=== PATIENT | female | born 1935 | race Two or more races ===

== ENCOUNTER 2018-06-19 09:43 | Emergency (ER) | payer MEDICARE, OTHER ==
[~2018-06-19] VITALS: Ht 157.5 cm; Wt 57.6 kg
--- NOTE | 2018-06-19 10:20 | NUR ---
AAOX3, BIB FAMILY FROM HOME VIA WC C/O ABD PAIN X 9 DAYS WITH NAUSEA WORST TODAY AND WHEECHAIR BOUND. RR IS EVEN AND UNLABORED WITH NAD NOTED. SKIN IS WARM AND DRY. AWAITING MD FOR EVAL.
[2018-06-19 11:01] LABS: BASOPHILS % (AUTO) 0.4 % (0.0-2.0); EOSINOPHILS % (AUTO) 0.3 % (0.0-6.0); HEMATOCRIT 40 % (33-45); HEMOGLOBIN 13.3 g/dL (11.5-14.8); LYMPHOCYTES # (AUTO) 1.5 /CMM (0.8-4.8); LYMPHOCYTES % (AUTO) 19.8 % (20.0-44.0); MEAN CORPUSCULAR HGB CONC 34 g/dl (31.0-36.0); MEAN CORPUSCULAR VOLUME 91 fL (82-100); MONOCYTES # (AUTO) 0.4 /CMM (0.1-1.30); MONOCYTES % (AUTO) 5.8 % (2.0-12.0); NEUTROPHILS # (AUTO) 5.4 /CMM (1.8-8.9); NEUTROPHILS % (AUTO) 73.7 % (43.0-81.0); PLATELET COUNT (AUTO) 302 /CMM (150-450); RED BLOOD CELL COUNT(AUTO) 4.37 MIL/uL (4.0-5.2); WHITE BLOOD COUNT (AUTO) 7.4 K/uL (4.3-11.0)
[2018-06-19] MEDS: IV NS 0.9% 500 ML BAG IV ONE (11:02)
[2018-06-19 11:08] LABS: CALCIUM, SERUM 8.7 mg/dL (8.5-10.1); CARBON DIOXIDE 29 mmol/L (21-32); CHLORIDE 100 mmol/L (98-107); CREATININE 0.7 mg/dL (0.6-1.3); GLUCOSE 119 mg/dL (74-106); SODIUM SERUM 138 mmol/L (136-145); UREA NITROGEN, BLOOD 10 mg/dL (7-18)
[2018-06-19 11:15] LABS: ALANINE AMINOTRANSFERASE 11 U/L (12-78); ALBUMIN 2.8 g/dL (3.4-5.0); ALKALINE PHOSPHATASE 77 U/L (46-116); ASPARTATE AMINOTRANSFERASE 15 U/L (15-37); BILIRUBIN,DIRECT 0.1 mg/dL (0.0-0.2); BILIRUBIN,TOTAL 0.4 mg/dL (0.2-1.0); LIPASE 48 U/L (73-393); TOTAL PROTEIN, SERUM 6.6 g/dL (6.4-8.2)
--- NOTE | 2018-06-19 11:40 | NUR ---
Patient is resting comfortably in bed with eyes closed. Easily aroused. VSS
[2018-06-19 11:43] LABS: APPEARANCE,URINE Cloudy (CLEAR); BILIRUBIN,URINE SMALL (NEGATIVE); BLOOD, URINE Large Ery/uL (NEGATIVE); COLOR,URINE Dark Yellow (YELLOW); KETONES,URINE 40 (NEGATIVE); LEUKOCYTE ESTERASE ,URINE Small (NEGATIVE); NITRITE, URINE Negative (NEGATIVE); PROTEIN,URINE 100 mg/dl (NEGATIVE); UGLUCOSE Negative (NEGATIVE); UROBILINOGEN,URINE 0.2 EU/dL (0.2)
[2018-06-19 11:51] LABS: BACTERIA,URINE Moderate /HPF (None Seen); RBC,URINE 50-80 /HPF (0-2); SQUAMOUS EPITHELIAL CELL,UR Few /HPF (None Seen); WBC,URINE 80-100 /HPF (0-3)
[2018-06-19] MEDS ORDERED: SUMA50TA PO (12:48)
[2018-06-19] MEDS ORDERED: SITA1TAB2 PO (12:48)
[2018-06-19] MEDS ORDERED: LUBI24CA5 PO (12:48)
[2018-06-19] MEDS ORDERED: DULO60CA45 PO (12:48)
[2018-06-19] MEDS ORDERED: SODI45SP6 BNOSTRILS (12:48)
[2018-06-19] MEDS ORDERED: THIO200T PO (12:48)
[2018-06-19] MEDS ORDERED: ERGO500014 PO (12:48)
[2018-06-19] MEDS ORDERED: AMIO200T4 PO (12:48)
[2018-06-19] MEDS ORDERED: VITA1TAB56 PO (12:48)
[2018-06-19] MEDS ORDERED: MYRBETRIQ PO (12:48)
[2018-06-19] MEDS ORDERED: DOCU250C14 PO (12:48)
[2018-06-19] MEDS ORDERED: FLUT1DIS5 IH (12:48)
[2018-06-19] MEDS ORDERED: CALC500T52 PO (12:48)
[2018-06-19] MEDS ORDERED: ALBU2.5V38 IH (12:48)
[2018-06-19] MEDS ORDERED: ACET1TAB12 PO (12:48)
[2018-06-19] MEDS ORDERED: OXYB5TAB PO (12:48)
[2018-06-19] MEDS ORDERED: CYCL5TAB PO (12:48)
[2018-06-19] MEDS ORDERED: TRAM50TA2 PO (12:48)
[2018-06-19] MEDS ORDERED: APIX2.5T PO (12:48)
[2018-06-19] MEDS ORDERED: ALBU8.5H8 IH (12:48)
[2018-06-19] MEDS ORDERED: METO25TA3 PO (12:48)
[2018-06-19] MEDS ORDERED: HYDR12.55 PO (12:48)
[2018-06-19] MEDS ORDERED: OMEG1CAP PO (12:48)
[2018-06-19] MEDS ORDERED: ONDA4TAB5 PO (12:48)
[2018-06-19] MEDS ORDERED: LORA10TA7 PO (12:48)
[2018-06-19] MEDS ORDERED: PROP15DR EACHEYE (12:48)
[2018-06-19] MEDS ORDERED: PSYL0.526 PO (12:48)
[2018-06-19] MEDS ORDERED: SIMV10TA6 PO (12:48)
[2018-06-19] MEDS ORDERED: POLY17PO4 PO (12:48)
[2018-06-19] MEDS: CEFTRIAXONE 1 G in IV D5W 50 ML IV STA (12:53)
[2018-06-19] MEDS ORDERED: CEFTRIAXONE 1GM BAG (ER ONLY) 50 ML IV ONE (13:13)
[2018-06-19] MEDS: IV NS 0.9% 1,000 ML BAG IV ONE (13:18)
--- NOTE | 2018-06-19 14:42 | NUR ---
IV removed. Catheter intact and site benign. Pressure and 4x4 applied to site. No bleeding noted.Patient discharged to home in stable condition. Written and verbal after care instructions given. Patient verbalizes understanding of instruction.
[2018-06-19 14:43] VITALS: BP 119/62
== END 2018-06-19 14:44 | disposition home or self-care (01) ==
LOC: ER 09:46
DX: N39.0 Urinary tract infection, site not specified (principal); R11.0 Nausea; E87.6 Hypokalemia; E88.09 Other disorders of plasma-protein metabolism, not elsewhere classified; I10 Essential (primary) hypertension; E11.9 Type 2 diabetes mellitus without complications; M81.0 Age-related osteoporosis without current pathological fracture; J44.9 Chronic obstructive pulmonary disease, unspecified; Z86.711 Personal history of pulmonary embolism; Z86.73 Personal history of transient ischemic attack (TIA), and cerebral infarction without residual deficits; Z90.49 Acquired absence of other specified parts of digestive tract; Z90.89 Acquired absence of other organs; Z88.6 Allergy status to analgesic agent; Z79.899 Other long term (current) drug therapy
CPT/HCPCS: 36415; 71045-TC; 80048-TC; 80076-TC; 81000-TC; 83605-TC; 83690-TC; 84484-TC; 85025-TC; 85730-TC; 87086-TC; 87186-TC; J0696; J7030; J7040; J7060

== ENCOUNTER 2018-08-15 12:48 | Inpatient (IN) | payer MEDICARE, OTHER ==
[~2018-08-15] VITALS: Ht 152.4 cm; Wt 58.1 kg
[~2018-08-15 12:48] MED LIST: ACET1TAB12 PO; ALBU2.5V38 IH; ALBU8.5H8 IH; AMIO200T4 PO; APIX2.5T PO; CALC500T52 PO; CYCL5TAB PO; DOCU250C14 PO; DULO60CA45 PO; ERGO500014 PO; FLUT1DIS5 IH; HYDR12.55 PO; LORA10TA7 PO; LUBI24CA5 PO; METO25TA3 PO; MYRBETRIQ PO; OMEG1CAP PO; ONDA4TAB5 PO; OXYB5TAB PO; POLY17PO4 PO; PROP15DR EACHEYE; PSYL0.526 PO; SIMV10TA6 PO; SITA1TAB2 PO; SODI45SP6 BNOSTRILS; SUMA50TA PO; THIO200T PO; TRAM50TA2 PO; VITA1TAB56 PO
--- NOTE | 2018-08-15 13:03 | NUR ---
PT BIB FAMILY FOR COUGH AND CONGESTION, SENT BY PMD TO R/O PNA, PT AAOX2-3, PT ON MONTIOR, VSS, NAD NOTED, PENDING MD BACON
[2018-08-15] MEDS ORDERED: ALBUTEROL FS 2.5 MG/0.5 ML VIAL.NEB NEB ONE (13:30)
[2018-08-15] MEDS ORDERED: IV NS 0.9% 1,000 ML BAG IV ONE (13:30)
[2018-08-15] MEDS ORDERED: ACETAMINOPHEN 325 MG TABLET PO ONE (13:30)
[2018-08-15] MEDS ORDERED: CEFTRIAXONE 1GM BAG (ER ONLY) 50 ML IV ONE (13:30)
[2018-08-15 13:35] LABS: BASOPHILS # (AUTO) 0.1 /CMM (0.0-0.2); BASOPHILS % (AUTO) 1.4 % (0.0-2.0); HEMATOCRIT 40 % (33-45); HEMOGLOBIN 13.2 g/dL (11.5-14.8); LYMPHOCYTES # (AUTO) 0.7 /CMM (0.8-4.8); LYMPHOCYTES % (AUTO) 20.2 % (20.0-44.0); MEAN CORPUSCULAR HGB CONC 33 g/dl (31.0-36.0); MEAN CORPUSCULAR VOLUME 91 fL (82-100); MONOCYTES # (AUTO) 0.4 /CMM (0.1-1.30); MONOCYTES % (AUTO) 11.2 % (2.0-12.0); NEUTROPHILS # (AUTO) 2.5 /CMM (1.8-8.9); NEUTROPHILS % (AUTO) 67.2 % (43.0-81.0); PLATELET COUNT (AUTO) 173 /CMM (150-450); RED BLOOD CELL COUNT(AUTO) 4.37 MIL/uL (4.0-5.2); WHITE BLOOD COUNT (AUTO) 3.7 K/uL (4.3-11.0)
[2018-08-15 13:44] LABS: CALCIUM, SERUM 8.4 mg/dL (8.5-10.1); CARBON DIOXIDE 31 mmol/L (21-32); CHLORIDE 101 mmol/L (98-107); CREATININE 0.9 mg/dL (0.6-1.3); GLUCOSE 80 mg/dL (74-106); POTASSIUM 3.4 mmol/L (3.5-5.1); SODIUM SERUM 132 mmol/L (136-145); UREA NITROGEN, BLOOD 12 mg/dL (7-18)
[2018-08-15] MEDS ORDERED: ALBUTEROL FS 2.5 MG/3 ML VIAL.NEB ONE ×2 (13:47→15:28)
[2018-08-15] MEDS ORDERED: ACETAMINOPHEN 325 MG TABLET ONE (13:48)
[2018-08-15 13:50] LABS: ALANINE AMINOTRANSFERASE 17 U/L (12-78); ALBUMIN 2.9 g/dL (3.4-5.0); ALKALINE PHOSPHATASE 67 U/L (46-116); ASPARTATE AMINOTRANSFERASE 33 U/L (15-37); BILIRUBIN,DIRECT 0.2 mg/dL (0.0-0.2); BILIRUBIN,TOTAL 0.4 mg/dL (0.2-1.0); TOTAL PROTEIN, SERUM 6.5 g/dL (6.4-8.2)
[2018-08-15 15:01] LABS: APPEARANCE,URINE Clear (CLEAR); BILIRUBIN,URINE Negative (NEGATIVE); BLOOD, URINE Negative Ery/uL (NEGATIVE); COLOR,URINE Yellow (YELLOW); KETONES,URINE Negative (NEGATIVE); LEUKOCYTE ESTERASE ,URINE Negative (NEGATIVE); NITRITE, URINE Negative (NEGATIVE); PROTEIN,URINE Negative (NEGATIVE); UGLUCOSE Negative (NEGATIVE); UROBILINOGEN,URINE 0.2 EU/dL (0.2)
[2018-08-15] MEDS ORDERED: ALBUTEROL FS 2.5 MG/3 ML VIAL.NEB CONTNEB ONE (15:30)
--- NOTE | 2018-08-15 15:52 | NUR ---
MED-SURGE BED 325-1
--- NOTE | 2018-08-15 16:05 | NUR ---
REPORT GIVEN TO DILIP WILKINS FOR ANDERS
--- NOTE | 2018-08-15 16:46 | NUR ---
PT READY TO BE TRANSFERRED, ADMITTING DEPT MOVE PACKET NOT READY
--- NOTE | 2018-08-15 17:25 | NUR ---
PT TRANSPORTED TO [facility] VIA ACLS PROTOCOL
--- NOTE | 2018-08-15 18:44 | NUR ---
RN CLOSING NOTES PT RESTING IN BED COMFORTABLY. AWAITING ADMISSION ORDERS CHER GARCIA AWARE. PT HAD A RIGHT AC #18, ACCIDENTLY REMOVED. PT PRIMARILY [place] SPEAKER, FAMILY AT BEDSIDE FOR TRANSLATION. SAFETY PRECAUTIONS IN PLACE, BED IN LOWEST LOCKED POSITION, WILL ENDORSE TO CRIMINAL LAWYER.
--- NOTE | 2018-08-15 19:28 | NUR ---
MS RN AWAKE IN BED WATCHING TV, STABLE. FAMILY AT BEDSIDE, A/OX4. RESPIRATIONS EVEN AND UNLABORED, NO SOB NOTED,SAFETY MEASURES IN PLACE. WILL CONTINUE TO MONITOR.
[2018-08-15 20:00] VITALS: BP_SYST 113; BP_DIAS 113; BP_DIAS 49
[2018-08-15] MEDS ORDERED: Z GUARD REMEDY 2 OZ OINT TP PRN (20:00)
[2018-08-15] MEDS ORDERED: POLYETHYLENE GLYCOL 3350 17 GM POWD.PACK PO PRN (20:00)
[2018-08-15] MEDS ORDERED: HYDROCODONE/APAP 5/325MG 1 EACH TABLET PO PRN (20:00)
[2018-08-15] MEDS ORDERED: MAG HYDROX/AL HYDROX/SIMETH 30 ML UDC PO PRN (20:00)
[2018-08-15] MEDS ORDERED: ACETAMINOPHEN 325 MG TABLET PO PRN (20:00)
[2018-08-15] MEDS ORDERED: MAGNESIUM HYDROXIDE 30 ML UDC PO PRN (20:00)
[2018-08-15] MEDS ORDERED: LORATADINE 10 MG TABLET PO PRN (20:00)
[2018-08-15] MEDS: IV NS 0.9% 1,000 ML IV PRN (20:13)
[2018-08-15] MEDS: ELIQUIS 2.5 MG PO SCH (21:13)
[2018-08-15] MEDS: POLYVINYL ALCOHOL 15 ML BOTTLE EACHEYE SCH (21:14)
--- NOTE | 2018-08-16 06:05 | NUR ---
MS RN CLOSING NOTE ASLEEP AND EASILY AWAKEN. DAUGHTER AT BEDSIDE. TOLERATING ROOM AIR 98%. PT A/O X 3 WITH PERIOD OF FORGETFULNESS. IN NO APPARENT DISTRESS OR DISCOMFORT AT THIS TIME. RESPIRATIONS EVEN AND UNLABORED. DENIES PAIN AND SOB AT THIS TIME. PATIENT KEPT CLEAN AND COMFORTABLE. ALL NEEDS ATTENDED. REPOSITIONED EVERY 2 HOURS, SAFETY MEASURES IN PLACE, BED IN LOW LOCKED POSITION, CALL LIGHT WITHIN EASY REACH. ENDORSE TO NEXT SHIFT CONTINUITY OF CARE.
[2018-08-16 06:52] LABS: EOSINOPHILS % (AUTO) 0.2 % (0.0-6.0); HEMATOCRIT 34 % (33-45); HEMOGLOBIN 11.7 g/dL (11.5-14.8); LYMPHOCYTES # (AUTO) 1.2 /CMM (0.8-4.8); LYMPHOCYTES % (AUTO) 35.6 % (20.0-44.0); MEAN CORPUSCULAR HGB CONC 34 g/dl (31.0-36.0); MEAN CORPUSCULAR VOLUME 90 fL (82-100); MONOCYTES # (AUTO) 0.3 /CMM (0.1-1.30); MONOCYTES % (AUTO) 9.7 % (2.0-12.0); NEUTROPHILS # (AUTO) 1.8 /CMM (1.8-8.9); NEUTROPHILS % (AUTO) 53.5 % (43.0-81.0); PLATELET COUNT (AUTO) 140 /CMM (150-450); RED BLOOD CELL COUNT(AUTO) 3.83 MIL/uL (4.0-5.2); WHITE BLOOD COUNT (AUTO) 3.3 K/uL (4.3-11.0)
--- NOTE | 2018-08-16 07:12 | NUR ---
MS RN NOTES PATIENT IN BED ALERT ORIENTED X 3. NO ACUTE DISTRESS NOTED. BREATHING UNLABORED. NO SOB NOTED. DENIED ANY PAIN. IV ACCESS PATENT AND INTACT, NO REDNESS OR SWELLING NOTED. SAFETY MEASURES IN PLACE. CALL LIGHT WITHIN REACH. WILL CONTINUE TO MONITOR ACCORDINGLY.
[2018-08-16 07:20] LABS: CALCIUM, SERUM 7.3 mg/dL (8.5-10.1); CARBON DIOXIDE 26 mmol/L (21-32); CHLORIDE 107 mmol/L (98-107); CREATININE 0.6 mg/dL (0.6-1.3); GLUCOSE 76 mg/dL (74-106); MAGNESIUM 1.3 mg/dL (1.8-2.4); PHOSPHORUS 2.5 mg/dL (2.5-4.9); SODIUM SERUM 143 mmol/L (136-145); UREA NITROGEN, BLOOD 7 mg/dL (7-18)
[2018-08-16 07:27] LABS: CHOLESTEROL 102 mg/dL (<200); HDL CHOLESTEROL 38 mg/dL (40-60); LDL 58 mg/dL (0-99); THYROID STIMULATING HORMONE 1.458 uIU/mL (0.358-3.74); TRIGLYCERIDES 58 mg/dL (30-150)
[2018-08-16] MEDS: glipiZIDE 5 MG TABLET PO SCH ×3 (07:30→16:30)
[2018-08-16 07:33] LABS: POTASSIUM 2.5 mmol/L (3.5-5.1)
[2018-08-16 08:02] VITALS: BP 119/63
[2018-08-16] MEDS: PANTOPRAZOLE 40 MG TABLET.DR PO SCH (08:24)
[2018-08-16] MEDS ORDERED: SIMVASTATIN 10 MG TABLET PO SCH (09:00)
[2018-08-16] MEDS ORDERED: METOPROLOL SUCCINATE 25 MG TAB.SR.24H PO SCH (09:00)
[2018-08-16] MEDS ORDERED: Medication Not On Formulary EA ([Myrbetriq] 50 MG) PO SCH (09:00)
[2018-08-16] MEDS ORDERED: ERGOCALCIFEROL (VITAMIN D 2) 50,000 UNIT CAPSULE PO SCH (09:00)
[2018-08-16] MEDS ORDERED: Medication Not On Formulary EA (Omega-3 Fatty Acids/Fish Oil (Fish Oil 1,000 Mg Capsule) PO SCH (09:00)
--- NOTE | 2018-08-16 09:07 | NUR ---
MS RN NOTES SEEN AND EVALUATED BY JOSHUA GARCIA, AWARE LABORATORY TEST RESULTS FROM TODAY INCLUDING LOW POTASSIUM, WITH NEW ORDERS MADE. NOTED AND CARRIED OUT.
[2018-08-16] MEDS: Magnesium 1GM/D5W 100ML PREMIX 100 ML IV SCH ×2 (09:24→21:43)
[2018-08-16 09:27] LABS: ALBUMIN 2.4 g/dL (3.4-5.0); TOTAL PROTEIN, SERUM 5.6 g/dL (6.4-8.2)
[2018-08-16] MEDS: IV NS 0.9% 1,000 ML IV PRN (09:29)
[2018-08-16] MEDS ORDERED: POTASSIUM CHLORIDE 20 MEQ TAB.PRT.SR PO ONE (09:30)
[2018-08-16] MEDS: POLYVINYL ALCOHOL 15 ML BOTTLE EACHEYE SCH ×3 (09:38→17:18)
[2018-08-16] MEDS: DOCUSATE SODIUM 250 MG CAPSULE PO SCH ×2 (09:38→17:15)
[2018-08-16] MEDS: PSYLLIUM SEED 1 PKT PACKET PO SCH ×3 (09:38→17:00)
[2018-08-16] MEDS: CALCIUM CARBONATE (1250) 500 MG TABLET PO SCH ×2 (09:38→17:15)
[2018-08-16] MEDS: VITAMIN B COMP W-C 1 TAB TABLET PO SCH (09:39)
[2018-08-16] MEDS: IPRATROPIUM NEB FS 0.5 MG/2.5 ML AMPUL.NEB NEB PRN (09:54)
[2018-08-16] MEDS: ALBUTEROL FS 2.5 MG/3 ML VIAL.NEB NEB PRN (09:54)
[2018-08-16] MEDS: DULOXETINE HCL 30 MG CAPSULE.DR PO SCH (09:57)
[2018-08-16] MEDS: ELIQUIS 2.5 MG PO SCH ×2 (09:58→17:17)
[2018-08-16] MEDS: AMITIZA 24 MCG PO SCH ×2 (09:58→17:17)
[2018-08-16] MEDS: AMIODARONE HCL 200 MG TABLET PO SCH (09:59)
[2018-08-16] MEDS: OXYBUTYNIN CHLORIDE ER 5 MG TAB PO SCH (10:00)
[2018-08-16] MEDS: POTASSIUM CL. PREMIX PERIPHER. 50 ML IV SCH ×4 (10:26→20:27)
[2018-08-16] MEDS ORDERED: DEXTROSE 50%-WATER 50 ML DISP.SYRIN IV PRN (11:30)
[2018-08-16] MEDS: CEFTRIAXONE 1 G in IV D5W 50 ML IV SCH (13:52)
[2018-08-16 16:00] VITALS: BP 118/70
[2018-08-16] MEDS: ONDANSETRON HCL/PF 4 MG/2 ML VIAL IVP PRN (17:15)
[2018-08-16] MEDS: SUMATRIPTAN SUCCINATE 25 MG TABLET PO PRN (17:16)
[2018-08-16] MEDS: ACETAMINOPHEN W/ CODEINE#3 1 EA TABLET PO PRN (17:19)
--- NOTE | 2018-08-16 18:59 | NUR ---
MS RN NOTES PATIENT SEEN BY RUBBER OFF RADHA WITH ORDERS TO CANCEL BMP AFTER ADMINISTRATION OF POTASSIUM IV, CAN BE DONE TOGETHER WITH TOMORROW'S LABORATORY TEST.NOTED AND CARRIED OUT.
--- NOTE | 2018-08-16 19:00 | NUR ---
MS RN NOTES PATIENT IN BED ALERT ORIENTED X 3. NO ACUTE DISTRESS NOTED. BREATHING UNLABORED. NO SOB NOTED. DENIED ANY PAIN. IV ACCESS PATENT AND INTACT, NO REDNESS OR SWELLING NOTED. DUE MEDICATIONS GIVEN, NO ASE NOTED. NEEDS ATTENDED AND ANTICIPATED. KEPT CLEAN DRY AND COMFORTABLE. SAFETY MEASURES IN PLACE. CALL LIGHT WITHIN REACH. DELAYED ADMINISTRATION ON MAGNESIUM IV AND POTASSIUM IV PER PATIENT REQUEST, SEWER SEPARATION DESIGNER CHER GARCIA AWARE, ENDORSED TO NIGHT NURSE FOR CONTINUITY OF CARE.
[2018-08-16 20:00] VITALS: BP 144/68
--- NOTE | 2018-08-16 20:00 | NUR ---
RN NOTES PATIENT IS ALERT AND ORIENTED X3, [place] SPEAKING ONLY, CALM, NO SOB, ON ROOM AIR, LUNG SOUNDS ARE CLEAR, GENERALIZED WEAKNESS, ON POTASSIUM IV AND MAGNESIUM IV, FAMILY AT THE BEDSIDE, NEEDS ATTENDED, CALL LIGHT WITHIN REACH
[2018-08-16] MEDS: SIMVASTATIN 10 MG TABLET PO SCH (21:05)
[2018-08-16] MEDS: METOPROLOL SUCCINATE 25 MG TAB.SR.24H PO SCH (21:05)
[2018-08-16 22:00] VITALS: BP 144/68
[2018-08-16 22:11] VITALS: BP 144/68
[2018-08-17] MEDS: IPRATROPIUM NEB FS 0.5 MG/2.5 ML AMPUL.NEB NEB PRN (00:22)
[2018-08-17] MEDS: ALBUTEROL FS 2.5 MG/3 ML VIAL.NEB NEB PRN (00:22)
[2018-08-17] MEDS: ACETAMINOPHEN W/ CODEINE#3 1 EA TABLET PO PRN ×3 (01:00→20:14)
[2018-08-17] MEDS: ONDANSETRON HCL/PF 4 MG/2 ML VIAL IVP PRN ×3 (01:00→20:14)
[2018-08-17] MEDS: BLOOD SUGAR DIAGNOSTIC 1 EACH STRIP IN SCH (06:37)
[2018-08-17] MEDS: IV NS 0.9% 1,000 ML IV PRN ×2 (06:39→21:56)
--- NOTE | 2018-08-17 06:57 | NUR ---
RN NOTES PM SHIFT PATIENT IS ALERT AND ORIENTED, GENERALIZED WEAKNESS, NO RESPIRATORY DISTRESS, COMPLAINING OF MIGRAINE, GIVEN TYLENOL WITH CODEINE X2, MONITOR POTASSIUM AND MAGNESIUM LEVEL, ASSESS RESPIRATORY LEVEL STATUS AND BREATHING TX PRN.
--- NOTE | 2018-08-17 07:10 | NUR ---
MS RN NOTES PATIENT IN BED EYES CLOSED, EASY TO AROUSE, RESPOND TO VERBAL AND TACTILE STIMULI. HEAD OF BED ELEVATED. NO ACUTE DISTRESS NOTED. BREATHING UNLABORED. NO SOB NOTED. DENIED ANY PAIN. IV ACCESS PATENT AND INTACT, NO REDNESS OR SWELLING NOTED. SAFETY MEASURES IN PLACE. CALL LIGHT WITHIN REACH. WILL CONTINUE TO MONITOR ACCORDINGLY.
[2018-08-17] MEDS: glipiZIDE 5 MG TABLET PO SCH ×2 (07:30→16:30)
[2018-08-17 07:42] LABS: BASOPHILS % (AUTO) 0.6 % (0.0-2.0); EOSINOPHILS % (AUTO) 0.2 % (0.0-6.0); HEMATOCRIT 36 % (33-45); LYMPHOCYTES # (AUTO) 1.4 /CMM (0.8-4.8); LYMPHOCYTES % (AUTO) 37.6 % (20.0-44.0); MEAN CORPUSCULAR HGB CONC 34 g/dl (31.0-36.0); MEAN CORPUSCULAR VOLUME 90 fL (82-100); MONOCYTES # (AUTO) 0.3 /CMM (0.1-1.30); MONOCYTES % (AUTO) 7.1 % (2.0-12.0); NEUTROPHILS % (AUTO) 54.5 % (43.0-81.0); PLATELET COUNT (AUTO) 114 /CMM (150-450); RED BLOOD CELL COUNT(AUTO) 3.95 MIL/uL (4.0-5.2); WHITE BLOOD COUNT (AUTO) 3.8 K/uL (4.3-11.0)
[2018-08-17 07:53] LABS: CALCIUM, SERUM 7.7 mg/dL (8.5-10.1); CARBON DIOXIDE 25 mmol/L (21-32); CHLORIDE 108 mmol/L (98-107); CREATININE 0.5 mg/dL (0.6-1.3); GLUCOSE 74 mg/dL (74-106); MAGNESIUM 1.8 mg/dL (1.8-2.4); PHOSPHORUS 1.9 mg/dL (2.5-4.9); POTASSIUM 3.6 mmol/L (3.5-5.1); SODIUM SERUM 140 mmol/L (136-145); UREA NITROGEN, BLOOD 6 mg/dL (7-18)
[2018-08-17 08:00] VITALS: BP 100/49
[2018-08-17] MEDS: PANTOPRAZOLE 40 MG TABLET.DR PO SCH (08:29)
[2018-08-17] MEDS: AMIODARONE HCL 200 MG TABLET PO SCH (09:00)
[2018-08-17] MEDS: PSYLLIUM SEED 1 PKT PACKET PO SCH ×3 (09:00→17:00)
[2018-08-17] MEDS: DOCUSATE SODIUM 250 MG CAPSULE PO SCH ×2 (09:32→17:00)
[2018-08-17] MEDS: POLYVINYL ALCOHOL 15 ML BOTTLE EACHEYE SCH ×3 (09:32→17:40)
[2018-08-17] MEDS: CALCIUM CARBONATE (1250) 500 MG TABLET PO SCH ×2 (09:32→17:40)
[2018-08-17] MEDS: AMITIZA 24 MCG PO SCH ×2 (09:33→17:39)
[2018-08-17] MEDS: OXYBUTYNIN CHLORIDE ER 5 MG TAB PO SCH (09:33)
[2018-08-17] MEDS: VITAMIN B COMP W-C 1 TAB TABLET PO SCH (09:33)
[2018-08-17] MEDS: DULOXETINE HCL 30 MG CAPSULE.DR PO SCH (09:33)
[2018-08-17] MEDS: ELIQUIS 2.5 MG PO SCH ×2 (09:34→17:39)
[2018-08-17] MEDS ORDERED: NEUTRA PHOS 1 POWD.PACKET PO ONE (10:00)
[2018-08-17] MEDS: CEFTRIAXONE 1 G in IV D5W 50 ML IV SCH (13:06)
--- NOTE | 2018-08-17 15:43 | NUR ---
MS RN NOTES RECEIVED NEW ORDERS FROM MAHAMED GARCIA FOR SPUTUM CULTURE, NOTED AND CARRIED OUT.
[2018-08-17 16:00] VITALS: BP 103/67
--- NOTE | 2018-08-17 19:00 | NUR ---
MS RN NOTES PATIENT IN BEDALERT ORIENTED X 3. HEAD OF BED ELEVATED. NO ACUTE DISTRESS NOTED. BREATHING UNLABORED. NO SOB NOTED. DENIED ANY PAIN. IV ACCESS PATENT AND INTACT, NO REDNESS OR SWELLING NOTED.DUE MEDICATIONS GIVEN, NO ASE NOTED, NEEDS ATTENDED AND ANTICIPATED. KEPT CLEAN DRY AND COMFORTABLE. SAFETY MEASURES IN PLACE. CALL LIGHT WITHIN REACH. ENDORSED TO NIGHT NURSE FOR CONTINUITY OF CARE
[2018-08-17 20:00] VITALS: BP 103/52
--- NOTE | 2018-08-17 20:00 | NUR ---
RN NOTES PATIENT IS ALERT AND ORIENTED X3, NO SOB, COMPLAINING OF MIGRAINE, WEAK, LETHARGIC, NO APPETITE, FAMILY VERY SUPPORTIVE, AWAITING PSYCH CONSULT
[2018-08-17] MEDS: SUMATRIPTAN SUCCINATE 25 MG TABLET PO PRN (20:14)
[2018-08-17] MEDS: SIMVASTATIN 10 MG TABLET PO SCH (21:53)
[2018-08-17] MEDS: METOPROLOL SUCCINATE 25 MG TAB.SR.24H PO SCH (21:53)
[2018-08-17 22:00] VITALS: BP 103/52
[2018-08-17] MEDS ORDERED: MIRTAZAPINE 15 MG TABLET PO SCH ×2 (22:00)
--- NOTE | 2018-08-17 22:30 | NUR ---
RN NOTES SEEN BY DR. CALLAWAY, NEW ORDER OF MIRTAZAPINE, FIRST DOSE GIVEN, EDUCATED PATIENT AND FAMILY ABOUT MEDICATION
--- NOTE | 2018-08-18 06:39 | NUR ---
RN NOTES PM SHIFT PATIENT IS ALERT AND ORIENTED X3, NO SOB, DEPRESSED, LETHARGIC, NO APPETITE, SEEN BY DR. CALLAWAY FOR PSYCH CONSULT, NEW ORDER OF MIRTAZAPINE, GIVEN FIRST DOSE, MIGRAINE HEADACHE, GIVEN IMITREX, TYLENOL WITH CODEINE AND ZOFRAN WITH GOOD RELIEF, PER POC, CONTINUE HOSPITALIZATION, IVF, MONITOR LABS, ASSESS RESPIRATORY STATUS Q4 HRS, BREATHING TX, AND PAIN MANAGEMENT.
[2018-08-18 06:41] LABS: BASOPHILS % (AUTO) 0.5 % (0.0-2.0); CALCIUM, SERUM 7.7 mg/dL (8.5-10.1); CARBON DIOXIDE 27 mmol/L (21-32); CHLORIDE 107 mmol/L (98-107); CREATININE 0.6 mg/dL (0.6-1.3); EOSINOPHILS % (AUTO) 0.5 % (0.0-6.0); GLUCOSE 76 mg/dL (74-106); HEMATOCRIT 36 % (33-45); HEMOGLOBIN 12.2 g/dL (11.5-14.8); LYMPHOCYTES # (AUTO) 1.8 /CMM (0.8-4.8); LYMPHOCYTES % (AUTO) 45.3 % (20.0-44.0); MAGNESIUM 1.5 mg/dL (1.8-2.4); MEAN CORPUSCULAR HGB CONC 34 g/dl (31.0-36.0); MEAN CORPUSCULAR VOLUME 91 fL (82-100); MONOCYTES # (AUTO) 0.3 /CMM (0.1-1.30); MONOCYTES % (AUTO) 7.6 % (2.0-12.0); NEUTROPHILS # (AUTO) 1.8 /CMM (1.8-8.9); NEUTROPHILS % (AUTO) 46.1 % (43.0-81.0); PHOSPHORUS 2.4 mg/dL (2.5-4.9); PLATELET COUNT (AUTO) 106 /CMM (150-450); POTASSIUM 3.5 mmol/L (3.5-5.1); RED BLOOD CELL COUNT(AUTO) 4.01 MIL/uL (4.0-5.2); SODIUM SERUM 140 mmol/L (136-145); UREA NITROGEN, BLOOD 6 mg/dL (7-18); WHITE BLOOD COUNT (AUTO) 3.9 K/uL (4.3-11.0)
--- NOTE | 2018-08-18 07:15 | NUR ---
RN OPENING NOTES RECEIVED PATIENT IN BED RESTING. ALERT AND ORIENTED X 3, [place] SPEAKING, DAUGHTER AT BEDSIDE. LETHARGIC. NOT IN ANY FORM OF DISTRESS, NO SOB. DENIED PAIN OR DISCOMFORT AT THIS TIME. IV ACCESS INTACT AND PATENT. KEPT PATIENT SAFE AND COMFORTABLE. BED IN LOW/LOCKED POSITION, SIDERAILS UPX2, CALL LIGHT IN REACH. WILL CONTINUE TO MONIOTR ACCORDINGLY.
[2018-08-18] MEDS: glipiZIDE 5 MG TABLET PO SCH (07:30)
[2018-08-18] MEDS: BLOOD SUGAR DIAGNOSTIC 1 EACH STRIP IN SCH (07:30)
[2018-08-18] MEDS: ELIQUIS 2.5 MG PO SCH (08:22)
[2018-08-18] MEDS: OXYBUTYNIN CHLORIDE ER 5 MG TAB PO SCH (08:22)
[2018-08-18] MEDS: DOCUSATE SODIUM 250 MG CAPSULE PO SCH (08:24)
[2018-08-18] MEDS: AMITIZA 24 MCG PO SCH (08:24)
[2018-08-18] MEDS: VITAMIN B COMP W-C 1 TAB TABLET PO SCH (08:24)
[2018-08-18] MEDS: CALCIUM CARBONATE (1250) 500 MG TABLET PO SCH (08:24)
[2018-08-18] MEDS: PANTOPRAZOLE 40 MG TABLET.DR PO SCH (08:25)
[2018-08-18] MEDS: AMIODARONE HCL 200 MG TABLET PO SCH (08:26)
[2018-08-18] MEDS: POLYVINYL ALCOHOL 15 ML BOTTLE EACHEYE SCH ×2 (08:27→12:24)
[2018-08-18 08:30] VITALS: BP 136/67
[2018-08-18] MEDS: PSYLLIUM SEED 1 PKT PACKET PO SCH ×2 (08:36→13:00)
[2018-08-18] MEDS ORDERED: NEUTRA PHOS 1 POWD.PACKET PO ONE (10:30)
[2018-08-18] MEDS: Magnesium 1GM/D5W 100ML PREMIX 100 ML IV SCH ×2 (10:58→12:01)
[2018-08-18] MEDS: ONDANSETRON HCL/PF 4 MG/2 ML VIAL IVP PRN (12:21)
[2018-08-18] MEDS: ACETAMINOPHEN W/ CODEINE#3 1 EA TABLET PO PRN (12:21)
[2018-08-18] MEDS: IPRATROPIUM NEB FS 0.5 MG/2.5 ML AMPUL.NEB NEB PRN ×2 (12:29→16:14)
[2018-08-18] MEDS: ALBUTEROL FS 2.5 MG/3 ML VIAL.NEB NEB PRN ×2 (12:29→16:14)
[2018-08-18] MEDS: CEFTRIAXONE 1 G in IV D5W 50 ML IV SCH (13:59)
[2018-08-18] MEDS ORDERED: ONDANSETRON HCL/PF 4 MG/2 ML VIAL ONE (14:21)
[2018-08-18] MEDS ORDERED: MORPHINE SULFATE INJ 4 MG/ML DISP.SYRIN ONE (14:21)
[2018-08-18 16:50] VITALS: BP 105/53
--- NOTE | 2018-08-18 18:25 | NUR ---
DISCHARGED PATIENT IN STABLE CONDITION PICKED UP BY DAUGHTER. DISCHARGE INSTRUCTIONS GIVEN, VERBALIZED UNDERSTANDING. DC PAPERWORK AND PRESCRIPTION GIVEN. ALL BELONGINGS AND HOME MEDICATIONS RETURNED, CHECKLIST SIGNED. IV ACCESS REMOVED, APPLIED PRESSURE, NO BLEEDING, NO COMPLICATIONS. REMOVED NAME BAND.
== END 2018-08-18 18:30 | disposition home or self-care (01) | DRG 202 ==
LOC: ER 12:57 → MED 16:55
PROVIDERS: ADMIT Hospitalist; ATTEND Hospitalist
PROC: 05H633Z Insertion of Infusion Device into Left Subclavian Vein, Percutaneous Approach (ICD-10-PCS; principal; 2018-08-15)
PROC: B547ZZA Ultrasonography of Left Subclavian Vein, Guidance (ICD-10-PCS; 2018-08-15)
DX: J20.8 Acute bronchitis due to other specified organisms (principal); E44.0 Moderate protein-calorie malnutrition; E87.1 Hypo-osmolality and hyponatremia; J06.9 Acute upper respiratory infection, unspecified; E83.39 Other disorders of phosphorus metabolism; Z86.73 Personal history of transient ischemic attack (TIA), and cerebral infarction without residual deficits; I10 Essential (primary) hypertension; E87.6 Hypokalemia; E86.0 Dehydration; E83.42 Hypomagnesemia; F32.9 Major depressive disorder, single episode, unspecified; Z86.711 Personal history of pulmonary embolism; E78.5 Hyperlipidemia, unspecified; J45.909 Unspecified asthma, uncomplicated; G43.909 Migraine, unspecified, not intractable, without status migrainosus; E11.42 Type 2 diabetes mellitus with diabetic polyneuropathy; M81.0 Age-related osteoporosis without current pathological fracture; I48.2 Chronic atrial fibrillation; K58.9 Irritable bowel syndrome, unspecified; R32 Unspecified urinary incontinence; Z79.01 Long term (current) use of anticoagulants; Z79.899 Other long term (current) drug therapy; Z83.3 Family history of diabetes mellitus; Z87.440 Personal history of urinary (tract) infections; Z79.51 Long term (current) use of inhaled steroids
CPT/HCPCS: 36415; 71045-TC; 80048-TC; 80061-TC; 80076-TC; 81000-TC; 82040-TC; 82962-TC; 83605-TC; 83735-TC; 84100-TC; 84155-TC; 84443-TC; 84484-TC; 85025-TC; 85730-TC; 87040-TC; 87081-TC; 87086-TC; 87400; 94799-TC; G0378; J0696; J2270; J2405; J3475; J3480; J7030; J7060

== ENCOUNTER 2018-09-04 05:25 | Emergency (ER) | payer MEDICARE ==
[~2018-09-04] VITALS: Ht 152.4 cm; Wt 56.4 kg
[~2018-09-04 05:25] MED LIST changes: -DULO60CA45 PO
--- NOTE | 2018-09-04 05:57 | NUR ---
BIBFAMILY C/O LOWER ABDOMINAL PAIN X1 DAY. +N,-V/D. -FEVER. -DYSURIA. LBM 1 DAY AGO. PT IS AAOX4, GREEK SPEAKING ONLY. PT'S FAMILY BEDSIDE. MILD S/S OF ACUTE DISTRESS NOTED D/T PT BEING IN PAIN. RR EVEN AND UNLABORED. PT PLACED ON FINISHING MACHINE OPERATOR AUTOMATIC AND POX. PT SAFETY AND COMFORT MEASURES IN PLACE. COMPLETED PT EVAL.
[2018-09-04] MEDS ORDERED: ONDANSETRON HCL/PF 4 MG/2 ML VIAL ONE (05:58)
[2018-09-04] MEDS ORDERED: HYDROMORPHONE 1 MG/1 ML DISP.SYRIN ONE (05:59)
[2018-09-04] MEDS ORDERED: HYDROMORPHONE INJ 2 MG/ML DISP.SYRIN IV ONE (06:00)
[2018-09-04] MEDS ORDERED: IV NS 0.9% 500 ML BAG IV ONE (06:00)
[2018-09-04] MEDS ORDERED: ONDANSETRON HCL/PF 4 MG/2 ML VIAL IVP ONE (06:00)
[2018-09-04 06:02] LABS: BASOPHILS # (AUTO) 0.1 /CMM (0.0-0.2); BASOPHILS % (AUTO) 0.8 % (0.0-2.0); HEMATOCRIT 40 % (33-45); HEMOGLOBIN 13.4 g/dL (11.5-14.8); LYMPHOCYTES # (AUTO) 1.8 /CMM (0.8-4.8); LYMPHOCYTES % (AUTO) 18.6 % (20.0-44.0); MEAN CORPUSCULAR HGB CONC 34 g/dl (31.0-36.0); MEAN CORPUSCULAR VOLUME 90 fL (82-100); MONOCYTES # (AUTO) 0.5 /CMM (0.1-1.30); MONOCYTES % (AUTO) 5.5 % (2.0-12.0); NEUTROPHILS # (AUTO) 7.4 /CMM (1.8-8.9); NEUTROPHILS % (AUTO) 74.1 % (43.0-81.0); PLATELET COUNT (AUTO) 235 /CMM (150-450); WHITE BLOOD COUNT (AUTO) 9.9 K/uL (4.3-11.0)
--- NOTE | 2018-09-04 06:06 | NUR ---
pt to ct
[2018-09-04 06:13] LABS: CALCIUM, SERUM 9.2 mg/dL (8.5-10.1); CARBON DIOXIDE 26 mmol/L (21-32); CHLORIDE 108 mmol/L (98-107); CREATININE 0.8 mg/dL (0.6-1.3); GLUCOSE 123 mg/dL (74-106); POTASSIUM 3.1 mmol/L (3.5-5.1); SODIUM SERUM 144 mmol/L (136-145); UREA NITROGEN, BLOOD 13 mg/dL (7-18)
[2018-09-04 06:18] LABS: ALANINE AMINOTRANSFERASE 24 U/L (12-78); ALKALINE PHOSPHATASE 100 U/L (46-116); ASPARTATE AMINOTRANSFERASE 23 U/L (15-37); BILIRUBIN,DIRECT 0.1 mg/dL (0.0-0.2); BILIRUBIN,TOTAL 0.5 mg/dL (0.2-1.0); LIPASE 103 U/L (73-393); TOTAL PROTEIN, SERUM 6.8 g/dL (6.4-8.2)
--- NOTE | 2018-09-04 06:23 | NUR ---
PT BACK FROM CT
--- NOTE | 2018-09-04 06:36 | NUR ---
URINE COLLECTED. CALLED LAB FOR PICKUP
[2018-09-04] MEDS ORDERED: POTASSIUM CHLORIDE 20 MEQ TAB.PRT.SR PO ONE (06:45)
[2018-09-04] MEDS ORDERED: POTASSIUM CHLORIDE 20 MEQ POWDER PACKET ONE (06:46)
[2018-09-04] MEDS ORDERED: POTASSIUM CHLORIDE 20 MEQ POWDER PACKET PO ONE (07:00)
[2018-09-04 07:21] LABS: APPEARANCE,URINE CLEAR (CLEAR); BILIRUBIN,URINE NEGATIVE (NEGATIVE); BLOOD, URINE NEGATIVE Ery/uL (NEGATIVE); COLOR,URINE YELLOW (YELLOW); KETONES,URINE NEGATIVE (NEGATIVE); LEUKOCYTE ESTERASE ,URINE NEGATIVE (NEGATIVE); NITRITE, URINE NEGATIVE (NEGATIVE); PH,URINE 7.5 (5.0-8.0); PROTEIN,URINE NEGATIVE (NEGATIVE); UGLUCOSE NEGATIVE (NEGATIVE)
--- NOTE | 2018-09-04 07:33 | NUR ---
REPORT GIVEN TO DILIP ROMERO FOR ANDERS.
[2018-09-04 07:35] LABS: BACTERIA,URINE None seen /HPF (None Seen); RBC,URINE NONE SEEN /HPF (0-2); SQUAMOUS EPITHELIAL CELL,UR Few /HPF (None Seen); WBC,URINE NONE SEEN /HPF (0-3)
--- NOTE | 2018-09-04 07:36 | NUR ---
RECEIVED REPORT FROM DILIP PINEDA FOR ANDERS, PT IS AAOX3, NOT IN RESPIRATORY DISTRESS, AWAITING LAB RESULTS.
[2018-09-04] MEDS ORDERED: CEFTRIAXONE 1GM BAG (ER ONLY) 1 GM/50 ML PIGGYBACK IV ONE (08:00)
[2018-09-04] MEDS ORDERED: CEFTRIAXONE 1GM BAG (ER ONLY) 50 ML IV ONE (08:00)
[2018-09-04] MEDS ORDERED: NA PHOS,M-B/NA PHOS,DI-BA 1 EA ENEMA RC ONE ×2 (08:34→09:30)
--- NOTE | 2018-09-04 09:01 | NUR ---
Patient discharged to home in stable condition. Written and verbal after care instructions given. Patient verbalizes understanding of instruction. IV removed. Catheter intact and site benign. Pressure and 4x4 applied to site. No bleeding noted.
[2018-09-04 09:46] VITALS: BP 150/76
== END 2018-09-04 09:47 | disposition home or self-care (01) ==
LOC: ER 05:30
DX: R10.30 Lower abdominal pain, unspecified (principal); R11.0 Nausea; R94.31 Abnormal electrocardiogram [ECG] [EKG]; E11.9 Type 2 diabetes mellitus without complications; I10 Essential (primary) hypertension; K59.00 Constipation, unspecified; I48.91 Unspecified atrial fibrillation; J45.909 Unspecified asthma, uncomplicated; Z86.711 Personal history of pulmonary embolism; Z90.49 Acquired absence of other specified parts of digestive tract; Z90.89 Acquired absence of other organs; Z95.1 Presence of aortocoronary bypass graft; Z88.6 Allergy status to analgesic agent
CPT/HCPCS: 36415; 71045; 74176; 80048; 80076; 81001; 83690; 84484; 85025; 85730; 93005; 96365; 96375; 99284; A4606; J0696; J1170; J2405; J7040; 81000-TC

== ENCOUNTER 2020-09-07 13:55 | Outpatient (CLI) | payer MEDICARE ==
[~2020-09-07 13:55] MED LIST changes: -AMIO200T4 PO; +AMIO200T5 PO; +OXYB-58 PO; -OXYB5TAB PO; -SIMV10TA6 PO; +SIMV10TA98 PO
[2020-09-07] MEDS ORDERED: LIDOCAINE 2% JEL 5 ML TUBE ONE (14:18)
[2020-09-07] MEDS ORDERED: BACI/NEOM/POLY B OINT PKT 1 UDPKT PACKET ONE (14:36)
== END 2020-09-07 23:59 | disposition home or self-care (01) ==
LOC: WOU 13:55
PROVIDERS: ATTEND Podiatrist Foot & Ankle Surgery
DX: E11.621 Type 2 diabetes mellitus with foot ulcer (principal); L97.512 Non-pressure chronic ulcer of other part of right foot with fat layer exposed; E11.51 Type 2 diabetes mellitus with diabetic peripheral angiopathy without gangrene; B35.1 Tinea unguium; Z79.4 Long term (current) use of insulin; Z79.01 Long term (current) use of anticoagulants
CPT/HCPCS: 11042

== ENCOUNTER 2020-09-14 14:10 | Outpatient (CLI) | payer MEDICARE ==
[2020-09-14] MEDS ORDERED: LIDOCAINE 2% JEL 5 ML TUBE ONE (14:25)
== END 2020-09-14 23:59 | disposition home or self-care (01) ==
LOC: WOU 14:10
PROVIDERS: ATTEND Podiatrist Foot & Ankle Surgery
DX: E11.51 Type 2 diabetes mellitus with diabetic peripheral angiopathy without gangrene (principal); Z79.4 Long term (current) use of insulin; B35.1 Tinea unguium; L60.0 Ingrowing nail; Z79.01 Long term (current) use of anticoagulants; Z86.31 Personal history of diabetic foot ulcer
CPT/HCPCS: G0463

== ENCOUNTER 2020-11-16 13:30 | Outpatient (CLI) | payer MEDICARE | END 2020-11-16 23:59 | disposition home or self-care (01) | LOC: WOU 13:30 | PROVIDERS: ATTEND Podiatrist Foot & Ankle Surgery | DX: Z09 Encounter for follow-up examination after completed treatment for conditions other than malignant neoplasm (principal); Z86.31 Personal history of diabetic foot ulcer; E11.51 Type 2 diabetes mellitus with diabetic peripheral angiopathy without gangrene; L60.0 Ingrowing nail; B35.1 Tinea unguium; Z79.84 Long term (current) use of oral hypoglycemic drugs; Z79.01 Long term (current) use of anticoagulants | CPT/HCPCS: G0463 ==

== ENCOUNTER 2021-01-18 13:20 | Outpatient (CLI) | payer MEDICARE | END 2021-01-18 23:59 | disposition home or self-care (01) | LOC: WOU 13:20 | PROVIDERS: ATTEND Podiatrist Foot & Ankle Surgery | DX: L60.0 Ingrowing nail (principal); B35.1 Tinea unguium; E11.51 Type 2 diabetes mellitus with diabetic peripheral angiopathy without gangrene; Z86.31 Personal history of diabetic foot ulcer; Z79.84 Long term (current) use of oral hypoglycemic drugs; Z79.01 Long term (current) use of anticoagulants | CPT/HCPCS: G0463 ==

== ENCOUNTER 2021-03-22 13:50 | Outpatient (CLI) | payer MEDICARE | END 2021-03-22 23:59 | disposition home or self-care (01) | LOC: WOU 13:50 | PROVIDERS: ATTEND Podiatrist Foot & Ankle Surgery | DX: B35.1 Tinea unguium (principal); L60.0 Ingrowing nail; E11.51 Type 2 diabetes mellitus with diabetic peripheral angiopathy without gangrene; Z86.31 Personal history of diabetic foot ulcer; Z79.84 Long term (current) use of oral hypoglycemic drugs; Z79.01 Long term (current) use of anticoagulants | CPT/HCPCS: G0463 ==

== ENCOUNTER 2021-05-24 14:25 | Outpatient (CLI) | payer MEDICARE | END 2021-05-24 23:59 | disposition home or self-care (01) | LOC: WOU 14:25 | PROVIDERS: ATTEND Podiatrist Foot & Ankle Surgery | DX: B35.1 Tinea unguium (principal); E11.42 Type 2 diabetes mellitus with diabetic polyneuropathy | CPT/HCPCS: G0463 ==

== ENCOUNTER 2021-08-23 13:50 | Outpatient (CLI) | payer MEDICARE | END 2021-08-23 23:59 | disposition home or self-care (01) | LOC: WOU 13:50 | PROVIDERS: ATTEND Podiatrist Foot & Ankle Surgery | DX: M79.81 Nontraumatic hematoma of soft tissue (principal); E11.42 Type 2 diabetes mellitus with diabetic polyneuropathy; Z79.84 Long term (current) use of oral hypoglycemic drugs; B35.1 Tinea unguium; Z74.09 Other reduced mobility; Z79.01 Long term (current) use of anticoagulants; Z99.3 Dependence on wheelchair | CPT/HCPCS: 10140; 73630-TC; 87070-TC; 87186-TC ==

== ENCOUNTER 2021-08-30 14:15 | Outpatient (CLI) | payer MEDICARE | END 2021-08-30 23:59 | disposition home or self-care (01) | LOC: WOU 14:15 | PROVIDERS: ATTEND Podiatrist Foot & Ankle Surgery | DX: Z09 Encounter for follow-up examination after completed treatment for conditions other than malignant neoplasm (principal); E11.42 Type 2 diabetes mellitus with diabetic polyneuropathy; B35.1 Tinea unguium; Z86.31 Personal history of diabetic foot ulcer; Z74.09 Other reduced mobility; Z79.01 Long term (current) use of anticoagulants; Z79.84 Long term (current) use of oral hypoglycemic drugs | CPT/HCPCS: G0463 ==

== ENCOUNTER 2021-10-11 14:00 | Outpatient (CLI) | payer MEDICARE ==
[2021-10-11] MEDS ORDERED: LIDOCAINE HCL/MPF 1% 30 ML VIAL IJ ONE (14:37)
[2021-10-11] MEDS ORDERED: BACI/NEOM/POLY B OINT PKT 1 UDPKT PACKET ONE (14:58)
== END 2021-10-11 23:59 | disposition home or self-care (01) ==
LOC: WOU 14:00
PROVIDERS: ATTEND Podiatrist Foot & Ankle Surgery
DX: L02.612 Cutaneous abscess of left foot (principal); L03.032 Cellulitis of left toe; M79.81 Nontraumatic hematoma of soft tissue; E11.42 Type 2 diabetes mellitus with diabetic polyneuropathy; Z79.84 Long term (current) use of oral hypoglycemic drugs; L60.0 Ingrowing nail; B35.1 Tinea unguium; M79.675 Pain in left toe(s); M79.674 Pain in right toe(s); Z79.01 Long term (current) use of anticoagulants
CPT/HCPCS: 11730; 87070; 87075; 87077; 87186; J3490

== ENCOUNTER 2021-10-18 14:05 | Outpatient (CLI) | payer MEDICARE ==
[2021-10-18] MEDS ORDERED: MUPIROCIN 2% CREAM 15 GM TUBE TP ONE (14:34)
== END 2021-10-18 23:59 | disposition home or self-care (01) ==
LOC: WOU 14:05
PROVIDERS: ATTEND Podiatrist Foot & Ankle Surgery
DX: L60.0 Ingrowing nail (principal); B35.1 Tinea unguium; E11.42 Type 2 diabetes mellitus with diabetic polyneuropathy; Z74.09 Other reduced mobility; M79.675 Pain in left toe(s); M79.674 Pain in right toe(s); Z79.84 Long term (current) use of oral hypoglycemic drugs; Z79.01 Long term (current) use of anticoagulants
CPT/HCPCS: G0463

== ENCOUNTER 2021-12-20 13:35 | Outpatient (CLI) | payer MEDICARE | END 2021-12-20 23:59 | disposition home or self-care (01) | LOC: WOU 13:35 | PROVIDERS: ATTEND Podiatrist Foot & Ankle Surgery | DX: Z09 Encounter for follow-up examination after completed treatment for conditions other than malignant neoplasm (principal); Z86.31 Personal history of diabetic foot ulcer; E11.42 Type 2 diabetes mellitus with diabetic polyneuropathy; Z79.84 Long term (current) use of oral hypoglycemic drugs; B35.1 Tinea unguium; Z74.09 Other reduced mobility; M79.675 Pain in left toe(s); M79.674 Pain in right toe(s); Z79.01 Long term (current) use of anticoagulants | CPT/HCPCS: G0463 ==

== ENCOUNTER 2022-03-21 13:57 | Outpatient (CLI) | payer MEDICARE | END 2022-03-21 23:59 | disposition home or self-care (01) | LOC: WOU 13:57 | PROVIDERS: ATTEND Podiatrist Foot & Ankle Surgery | DX: Z09 Encounter for follow-up examination after completed treatment for conditions other than malignant neoplasm (principal); Z86.31 Personal history of diabetic foot ulcer; E11.42 Type 2 diabetes mellitus with diabetic polyneuropathy; Z79.84 Long term (current) use of oral hypoglycemic drugs; B35.1 Tinea unguium; Z74.09 Other reduced mobility; M79.675 Pain in left toe(s); M79.674 Pain in right toe(s); Z99.3 Dependence on wheelchair | CPT/HCPCS: G0463 ==